=== PATIENT | female | born 1980 | race Caucasian/White ===

== ENCOUNTER 2017-02-28 11:36 | Emergency (ER) | payer OTHER ==
[~2017-02-28] VITALS: Ht 162.6 cm; Wt 89.1 kg
[~2017-02-28 11:36] MED LIST: AMOXICILLIN500 M1 PO; BENTYL10 MG PO; CITRATE OF MAG296 ML PO; CLINDAMYCIN HC300 MG PO; ESCITALOPRAM OX10 MG PO; FLEXERIL5 MG PO; HYDROCODON-ACE1 EAC7 PO; KEFLEX500 MG PO; KENALOG,ARISTOC15 G3 TP; METOPROLOL SUCC25 MG PO; MOTRIN IB200 MG PO; MOTRIN400 MG PO; MOTRIN800 MG PO; NAPROSYN500 MG PO; NO HOME MEDS; PERCOCET 5/31 TABLET PO; PREDNISONE10 MG PO; PRILOSEC20 MG PO; PYRIDIUM100 MG PO; TRAMADOL HCL50 MG PO; TYLENOL EXTRA500 MG PO; ZOFRAN ODT4 MG PO; ZOVIRAX800 M1 PO
[2017-02-28 12:16] LABS: HEMATOCRIT 41.4 % (36.0-46.0); MCHC 32.9 G/DL (30.0-36.0); MCV 85.4 FL (83-99); MEAN PLAT.VOLUME 10.5 uM^3 (9.5-12.4); PLATELET COUNT 239 K/uL (156-360); RBC DIS.WIDTH-CV 12.6 % (11.8-14.6); RBC DIS.WIDTH-SD 38.8 % (39-53); RED BLOOD COUNT 4.85 M/uL (3.80-5.20); WHITE BLOOD COUNT 8.4 K/uL (4.1-10.2)
[2017-02-28 12:25] LABS: CHLORIDE 102 mEq/L (99-109); SODIUM 137 mEq/L (136-147)
[2017-02-28 12:28] LABS: GLUCOSE 104 mg/dL (70-99)
[2017-02-28 12:29] LABS: ANION GAP 13 MEQ/L (2-14); TOTAL BILIRUBIN 0.9 mg/dL (0.0-1.0)
[2017-02-28 12:31] LABS: ALKALINE PHOSPHATASE 70 IU/L (3-129); GFR ESTIMATE (CALCULATED) > 59 mL/min/
[2017-02-28 12:32] LABS: UREA NITROGEN (BUN) 12 mg/dL (9-23)
[2017-02-28 12:35] LABS: LIPASE 19 U/L (1.0-51.0)
[2017-02-28 12:38] LABS: ADD MIUA? YES; BILIRUBIN NEGATIVE; BLOOD NEGATIVE; COLOR YELLOW ((YELLOW)); GLUCOSE (STRIP) NEGATIVE; KETONES 20; LEUKOCYTES TRACE; NITRITE NEGATIVE; PROTEIN (STRIP) 100; SPECIFIC GRAVITY 1.023 (1.000-1.030); UROBILINOGEN 0.2 MG/DL (0.2-1.0)
[2017-02-28 12:49] LABS: BACTERIA RARE /HPF; EPITHELIAL CELLS RARE /HPF; HYALINE CASTS 20-30 /LPF; MUCUS 4+ /LPF; RED BLOOD CELLS 0-5 /HPF (0-5); WHITE BLOOD CELLS 20-30 /HPF (0-5)
[2017-02-28] MEDS ORDERED: MACROBID100 MG PO (13:11)
[2017-02-28] MEDS ORDERED: ATARAX,VISTARIL25 MG PO (13:11)
[2017-02-28 13:27] VITALS: BP 128/91
== END 2017-02-28 13:32 | disposition home or self-care (01) ==
LOC: EME 11:36
PROVIDERS: Nurse Practitioner Family
DX: F41.0 Panic disorder [episodic paroxysmal anxiety] (principal); N39.0 Urinary tract infection, site not specified; I10 Essential (primary) hypertension; K58.9 Irritable bowel syndrome, unspecified; F32.9 Major depressive disorder, single episode, unspecified; Z90.711 Acquired absence of uterus with remaining cervical stump
CPT/HCPCS: 80053; 81003; 83690; 85027; 93005; 99281; 99284